=== PATIENT | female | born 1940 | race Caucasian/White ===

== ENCOUNTER 2017-07-05 22:53 | Emergency (ER) | payer BC ==
[~2017-07-05 22:53] MED LIST: ASAB PO; B COMPLETE PO; CALTRA600D PO; CARDCD120 PO; CEFT5 PO; ELIQUIS 5 MG TAB5 MG PO; FISH OIL PO; FISH-EPA1000 MG PO; HALF81 PO; LEVOXYL50 MCG PO; LOP25 PO; MOBIC15 MG PO; MULTIPLE VIT PO; MULTIVIT/MIN PO; NAMENDA10 MG PO; PRESERVISION A1 EAC1 PO; PRESERVISION A1 EACH PO; REFRES1 OPH; REFRESH OPH; RYTHMOL150 MG PO; SYN1 PO; THERGRANM PO; VITC500 PO; VITE PO
[2017-07-06 00:19] LABS: BASOPHILS 0.2 %; BASOPHILS ABSOLUTE 0.02 10/3/uL (0.0-0.16); EOSINOPHILS 0.9 %; EOSINOPHILS ABSOLUTE 0.08 10/3/uL (0.0-0.53); HEMATOCRIT 42.4 % (36.0-48.0); HEMOGLOBIN 14.3 g/dL (12.0-16.0); IMMATURE GRANULOCYTES 0.2 %; IMMATURE GRANULOCYTES ABSOLUTE 0.02 10/3/uL (0.0-0.11); LYMPHOCYTES 23.1 %; LYMPHOCYTES ABSOLUTE 2.01 10/3/uL (0.67-4.30); MEAN CORPUS HGB CONC 33.7 g/dL (32.0-36.0); MEAN CORPUSCULAR HEMOGLOB 33.3 pg (26.0-34.0); MEAN CORPUSCULAR VOLUME 98.6 fL (80-100); MONOCYTES 4.7 %; MONOCYTES ABSOLUTE 0.41 10/3/uL (0.21-1.20); NEUTROPHILS 70.9 %; NEUTROPHILS ABSOLUTE 6.16 10/3/uL (2.02-8.40); PLATELET COUNT 137 10/3/uL (150-400); RBC DISTRIBUTION WIDTH 13.9 % (12.0-16.0); WHITE BLOOD CELLS 8.7 10/3/uL (4.5-10.5)
[2017-07-06 00:20] LABS: MANUAL DIFF NO %
[2017-07-06 00:26] LABS: INTERNATIONAL NORMAL RATI 1.7 UNITS (-); PROTIME (NOT ORD) 19.6 SEC (12.0-14.5)
[2017-07-06 00:31] LABS: BUN (BLOOD UREA NITROGEN) 14 MG/DL (6-23); CALCIUM, SERUM 8.8 MG/DL (8.5-10.4); CHLORIDE, SERUM 109 MMOL/L (96-112); CO2 (CARBON DIOXIDE) 25 MMOL/L (24-34); CREATININE 1.26 MG/DL (0.55-1.02); GFR AFRICAN AMERICAN 47 ML/MIN (>=60); GFR NON AFRICAN AMERICAN 40 ML/MIN (>=60); GLUCOSE, SERUM 153 MG/DL (60-99); POTASSIUM, SERUM 3.9 MMOL/L (3.5-5.3); SODIUM, SERUM 143 MMOL/L (135-148)
== END 2017-07-06 02:12 | disposition home or self-care (01) ==
LOC: ER 22:53
PROVIDERS: Nurse Practitioner
DX: M25.562 Pain in left knee (principal); G89.29 Other chronic pain; R73.9 Hyperglycemia, unspecified; I48.0 Paroxysmal atrial fibrillation; E78.5 Hyperlipidemia, unspecified; Z90.710 Acquired absence of both cervix and uterus; M79.662 Pain in left lower leg; Z88.5 Allergy status to narcotic agent; Z91.09 Other allergy status, other than to drugs and biological substances; Z79.82 Long term (current) use of aspirin; Z79.899 Other long term (current) drug therapy
CPT/HCPCS: 73560-LT; 80048; 85025; 85610; 85730; 93971; 99284; A9270-GY